=== PATIENT | male | born 1995 | race Caucasian/White ===

== ENCOUNTER 2017-01-16 09:47 | Emergency (ER) | payer OTHER ==
[~2017-01-16] VITALS: Ht 180.3 cm; Wt 102.1 kg
--- NOTE | ~2017-01-16 | CT2 ---
[facility] A Service of [facility] RADIOLOGY TEXT RESULTS PATIENT: LIA MEJIA LOCATION: SED : 97 UNIT #: [id number] AGE: [address]: Miguel Ramirez MD SEX: M ORDER DR: [id number] E MR#: [id number] Acc #: [id number] NAME: LIA MEJIA : 1995 SEX: M STUDY DATE/TIME: 01/16/2017 13:16 UNIT: SED ROOM: STUDY DESCRIPTION: CT Abd and Pelv W Cont Attending Physician: Miguel Ramirez M.D. Ordering Physician: Miguel Ramirez M.D. Primary Care Phys[facility]: [facility] MED[facility] IMAGING REPORT This report is preliminary unless electronic signature is present. EXAM Abdomen and pelvis CT with contrast, 01/16/2017. INDICATION 21-year-old male with abdominal pain, nausea, and vomiting for a month. Symptoms getting worse today, upper epigastric pain. No prior surgeries. TECHNIQUE Contrast-enhanced abdomen and pelvis CT was performed. This CT exam was performed with one or more of the following radiation dose reduction techniques: automatic exposure control, adjustment of mA and/or kV according to patient size, and iterative reconstruction. COMPARISON 05/30/2014. FINDINGS CT ABDOMEN: Included lung bases are clear. Aorta demonstrates no aneurysm or dissection. Spleen, adrenal glands, and pancreas unremarkable. Gallbladder unremarkable. There is mild fatty infiltration of the liver. Kidneys are normal. CT PELVIS: Bladder unremarkable. There is probable pseudothickening of the transverse colon and right colon from incomplete distension. The appendix is normal. Inguinal canals unremarkable. There are bilateral pars defects at L5-S1. No suspicious bone lesion. IMPRESSION Negative noncontrast CT of the abdomen and pelvis. The appendix is normal. Incidental pars defects at L5-S1. [facility] A Service of [facility] RADIOLOGY TEXT RESULTS PATIENT: LIA MEJIA LOCATION: SED : 97 UNIT #: [id number] AGE: [address]: Miguel Ramirez MD SEX: M ORDER DR: Dictated by... Charly Monique M.D. THIS IS AN ELECTRONICALLY VERIFIED REPORT Charly Monique M.D. at 01/16/2017 5:18 PM SEUN/yessi TD: 01/16/2017 17:02 JOB #: [id number] MEDICAL IMAGING REPORT Page 1 of 1
[~2017-01-16 09:47] MED LIST: NO MEDICATIONS; VICODIN 5/500 T1 TAB PO
[2017-01-16 11:26] LABS: BASOPHIL% 0.3 % (0-2.5); EOSINOPHIL% 0.1 % (0.0-7.0); HEMATOCRIT 49.9 % (38.0-50.0); HEMOGLOBIN 16.9 gm/dL (13.0-16.0); LYMPHOCYTE# 0.8 X10e3 (1.0-3.5); LYMPHOCYTE% 5.9 % (17.0-45.0); MEAN CELL VOLUME 82.8 FL (83-96); MEAN CORPUSCULAR HEMOGLOBIN 28.1 PG (28-34); MEAN PLATELET VOLUME 10.3 FL (6.5-11.5); MONOCYTE# 0.8 X10e3 (0-1.0); MONOCYTE% 6.2 % (3.0-12.0); NEUTROPHIL# 11.7 X10e3 (1.5-7.1); NEUTROPHIL% 87.5 % (40-75); PLATELET COUNT 163 X10e3 (140-420); RED BLOOD COUNT 6.02 X10e (3.90-5.60); RED CELL DISTRIBUTION WIDTH 13.9 % (11.0-15.5); WHITE BLOOD COUNT 13.3 X10e3 (4.0-10.5)
[2017-01-16 11:27] LABS: DIFF IND NO
[2017-01-16 11:42] LABS: ALBUMIN SERUM 5.4 g/dL (3.5-5.0); BILIRUBIN,TOTAL 2.4 mg/dL (0.2-2.0); BUN/CREATININE RATIO 14.16; CALCIUM SERUM 9.8 mg/dL (8.4-10.2); CREATININE SERUM 1.2 mg/dL (0.6-1.4); GLOM FILT RATE Estimated 87.2 mL/min (>60); POTASSIUM 4.3 mmol/L (3.5-5.1); PROTEIN TOTAL SERUM 8.4 g/dL (6.0-8.3)
== END 2017-01-16 14:08 | disposition home or self-care (01) ==
LOC: SED 09:47
PROVIDERS: Emergency Medicine
DX: K29.70 Gastritis, unspecified, without bleeding (principal)
CPT/HCPCS: 36415; 74177; 80053; 83690; 85025; 86677; 96361; 96374; 96375; 99284; C9113; J2405; Q9967

== ENCOUNTER → 2017-02-09 | Outpatient (CLI) | payer OTHER ==
[~2017-02-09] MED LIST changes: +ALL DAY ALLERGY10 M3 PO; +BENTYL10 M1 PO; +CARAFATE1 GM PO; +PROTONIX PO; +THORAZINE25 MG PO; +ZOFRAN ODT4 M1 SL
[2017-02-09 17:19] LABS: HEMOGLOBIN 16.3 gm/dL (13.0-16.0); MEAN CORPUSCULAR HEMOGLOBIN 28.2 PG (28-34); MEAN CORPUSCULAR HGB CONC 33.9 g/dL (30-36); MEAN PLATELET VOLUME 10.2 FL (6.5-11.5); RED BLOOD COUNT 5.78 X10e (3.90-5.60); RED CELL DISTRIBUTION WIDTH 13.8 % (11.0-15.5); WHITE BLOOD COUNT 9.5 X10e3 (4.0-10.5)
[2017-02-09 17:27] LABS: ALBUMIN SERUM 5.1 g/dL (3.5-5.0); BILIRUBIN,TOTAL 1.3 mg/dL (0.2-2.0); BUN/CREATININE RATIO 11.81; CALCIUM SERUM 9.4 mg/dL (8.4-10.2); CREATININE SERUM 1.1 mg/dL (0.6-1.4); GLOM FILT RATE Estimated 96.8 mL/min (>60); POTASSIUM 3.6 mmol/L (3.5-5.1); PROTEIN TOTAL SERUM 7.8 g/dL (6.0-8.3)
== END | disposition home or self-care (01) ==
LOC: CLAB 16:43
PROVIDERS: Internal Medicine
DX: R10.9 Unspecified abdominal pain (principal)
CPT/HCPCS: 36415; 80053; 85027

== ENCOUNTER 2017-02-17 16:08 | Inpatient (IN) | payer OTHER ==
[~2017-02-17] VITALS: Ht 175.3 cm; Wt 95.2 kg
--- NOTE | ~2017-02-17 | NM22 ---
[facility] A Service of [facility] RADIOLOGY TEXT RESULTS PATIENT: LIA MEJIA LOCATION: A 218-01 : [birth year] UNIT #: [id number] AGE: [address]: Bandar Stanley MD SEX: M ORDER DR: [id number] [place], [place] [address] [id number] I MR#: [id number] Acc #: [id number] NAME: LIA MEJIA : 1995 SEX: M STUDY DATE/TIME: 02/19/2017 11:32 UNIT: [facility] ROOM: 218 STUDY DESCRIPTION: NM Hepatobiliary W GB Pharm Attending Physician: Bandar Stanley M.D. Ordering Physician: Delgado Ackerman M.D. Primary Care Physician: Primary Care Physician No MEDICAL IMAGING REPORT This report is preliminary unless electronic signature is present EXAM Radionuclide biliary scan 02/19/2017 HISTORY Abdominal pain, 1 month, negative EGD. Normal CT 01/16. FINDINGS Following intravenous administration of 4.16 mCi technetium 99m Choletec, static images of the abdomen were obtained at 15 minute intervals over 60 minutes. The patient then received 1.9 mcg Kinevac by intravenous infusion over 30 minutes. Images obtained before and after Kinevac infusion. Region of interest drawn around gallbladder and time activity curve constructed. Normal examination. Homogeneous distribution of radiotracer throughout the liver at 15 minutes post administration with radiotracer seen in gallbladder and common bile duct at 15 minutes post administration and in small bowel at 30 minutes post administration. During remainder of first hour of study, radiotracer continues to accumulate in small bowel and gallbladder. With Kinevac infusion, the 30 minute ejection fraction is 95.1%. Normal is greater than or equal to 30%. Dictated by... Delgado Boland M.D. THIS IS AN ELECTRONICALLY VERIFIED REPORT Delgado Boland M.D. at 02/21/2017 10:02 PM BRENTK/israel TD: 02/19/2017 18:28 JOB #: [id number] STS[facility] A Service of [facility] RADIOLOGY TEXT RESULTS PATIENT: LIA MEJIA LOCATION: [facility] 218-01 : 97 UNIT #: [id number] AGE: [address]: Bandar Stanley MD SEX: M ORDER DR: MEDICAL IMAGING REPORT Page 1 of 1 COPY
--- NOTE | ~2017-02-17 | CO ---
Unit #: [id number] #: [id number] Patient: LIA MEJIA [id number] [address] [address] [id number] I MR#: [id number] NAME: LIA MEJIA ROOM: 218 Age: 22 Sex: M Admission Date: 02/17/2017 : 1995 Attending Physician: Bandar Stanley M.D. Consultation Date: 02/20/2017 CONSULTATION REPORT REASON FOR CONSULTATION Severe anxiety, cannabis abuse. HISTORY OF PRESENT ILLNESS Lia Mejia is a 22-year-old white male, seen in room 218, bed 1 at [place] on 02/20/2017. The patient dressed casually, seemed to be in pain, rolling in bed, seemed somewhat anxious, nervous. The patient was unable to provide any reliable information. The patient's mom was in the room who gave most of the history. The patient's vital signs; temperature 97.9, pulse 79, respirations 18, blood pressure 148/90, oxygen saturation 93%. The patient was demanding pain medication, reported having lot of pain in his abdomen. So far all the testing came back negative. The patient's mom reported the patient having severe anxiety, and apparently, he was using marijuana. The patient's urine drug screen was positive for opiates and marijuana. The patient currently denied any suicidal or homicidal ideation. Denied any psychotic symptom. PAST PSYCHIATRIC HISTORY Unremarkable for any history of any previous treatment. MEDICAL HISTORY Remarkable for history of nausea and vomiting. No chronic medical condition. MEDICATION HISTORY The patient is on Protonix, Zofran, sucralfate, Bentyl. FAMILY HISTORY AND SOCIAL HISTORY The patient has good support system. No history of abuse. Reported history of cannabis abuse. Urine drug screen is positive for opiates and cannabis. MENTAL STATUS EXAMINATION General appearance; the patient is dressed casually. Attention span and concentration, poor. Speech, slow in volume. Oriented in self and place. Mood and affect, labile. Thought process, coherent. Thought content, the patient denied any thoughts of harming self or others or any psychotic symptom. Recent and remote memory, fair. Language, intact. Fund of knowledge, fair. Insight and judgment, fair to slightly impaired. DIAGNOSES Psychiatric: Cannabis abuse, moderate, F12.20; rule out opioid use disorder, severe, F11.20; anxiety disorder, not otherwise specified, F40.01. Unit #: [id number] #: [id number] Patient: LIA MEJIA Secondary diagnosis: Deferred. Medical diagnosis: Please refer to H and P. Stressors: Psychosocial stressors. ASSESSMENT/PLAN 1. Supportive psychotherapy and psychoeducation were provided to the patient. 2. Educated about benefits and side effects of medication and course and prognosis of illness. 3. Recommending Ativan 0.5 mg q.4 p.r.n. for severe anxiety. Advised Thorazine 25 mg t.i.d. to help with nausea and vomiting as well as with severe anxiety. We will continue to follow. Please feel free to call if any questions telephone #[phone]. Dictated by... Alejandro Suero/yany TD: 02/21/2017 05:02 JOB #: [id number] CONSULTATION REPORT Page 1 of 1 X Akil Brennan MD X CONSULTATION REPORT
--- NOTE | ~2017-02-17 | CR97 ---
[facility] A Service of [facility] RADIOLOGY TEXT RESULTS PATIENT: LIA MEJIA LOCATION: A 218-01 : [birth year] UNIT #: [id number] AGE: [address]: Bandar Stanley MD SEX: M ORDER DR: [id number] [place], [place] [address] [id number] I MR#: [id number] Acc #: [id number] NAME: LIA MEJIA : 1995 SEX: M STUDY DATE/TIME: 02/20/2017 10:53 UNIT: A ROOM: 218 STUDY DESCRIPTION: CR Esophagram Attending Physician: Bandar Stanley M.D. Ordering Physician: Bandar Stanley M.D. Primary Care Physician: Primary Care Physician No MEDICAL IMAGING REPORT This report is preliminary unless electronic signature is present EXAM Gastrografin esophagram HISTORY Pneumomediastinum on CT, concern for esophageal leak. FINDINGS The fluoro time was 1.2 minutes. A total of 10 fluoroscopic images were taken. Patient swallowed Gastrografin. Multiple fluoroscopic images were obtained. Study demonstrates no evidence of contrast extravasation from the esophagus to suggest leak. There were multiple tertiary contractions noted. IMPRESSION No evidence of contrast extravasation from the esophagus to suggest leak. Dictated by... Prabhjot Nelson M.D. THIS IS AN ELECTRONICALLY VERIFIED REPORT Prabhjot Nelson M.D. at 02/25/2017 11:20 AM STEPAN/valerie TD: 02/20/2017 14:58 JOB #: [id number] MEDICAL IMAGING REPORT Page 1 of 1 COPY
--- NOTE | ~2017-02-17 | CT4 ---
[facility] A Service of [facility] RADIOLOGY TEXT RESULTS PATIENT: LIA MEJIA LOCATION: A 218-01 : 97 UNIT #: [id number] AGE: [address]: Bandar Stanley MD SEX: M ORDER DR: [id number] [id number] [facility]. [place], [place] [address] [id number] I MR#: [id number] Acc #: [id number] NAME: LIA MEJIA : 1995 SEX: M STUDY DATE/TIME: 02/20/2017 8:55 UNIT: C2A ROOM: 218 STUDY DESCRIPTION: CT Abd and Pelv Wo Cont Attending Physician: Bandar Stanley M.D. Ordering Physician: Delgado Ackerman M.D. Primary Care Physician: No Primary Care Physician MEDICAL IMAGING REPORT This report is preliminary unless electronic signature is present EXAMINATION CT abdomen and pelvis without contrast. DATE 02/20/2017 HISTORY 22-year-old male with abdominal pain, vomiting, nausea since 02/17/2017. COMPARISON CT abdomen and pelvis with contrast, 01/16/2017. HIDA scan with Kinevac, 02/19/2017. PROCEDURE 5 mm axial images from the lung bases through the lesser trochanters without intravenous or enteric contrast. Sagittal and coronal reformatted images were obtained. This CT exam was performed with one or more of the following radiation dose reduction techniques: automatic exposure control, adjustment of mA and/or kV according to patient size, and iterative reconstruction. FINDINGS Posterior pneumomediastinum is present with air surrounding the lower thoracic esophagus and portion of the inferior pericardium. The lower thoracic esophagus itself does not appear appreciably thickened or inflamed. Lung bases are free of consolidation. No basilar pneumothorax is seen. No free air is demonstrated within the abdomen. The stomach appears unremarkable. Noncontrast appearance of the liver, gallbladder, spleen, pancreas, adrenals and kidneys is within normal limits. Appendix is normal. Bowel appears grossly nonthickened and noninflamed. No free [facility] A Service of [facility] RADIOLOGY TEXT RESULTS PATIENT: LIA MEJIA LOCATION: [facility] 218-01 : [birth year] UNIT #: [id number] AGE: [address]: Bandar Stanley MD SEX: M ORDER DR: contreras. PELVIS FINDINGS: Urinary bladder and rectum are within normal limits. Prostate gland is not enlarged. No urinary tract stone or hydronephrosis is seen. No acute osseous abnormalities are identified. Benign-appearing bone island within the L2 vertebrae. Bilateral L5 pars interarticularis defects are noted, but no anterolisthesis is seen. IMPRESSION 1. Posterior pneumomediastinum surrounding the esophagus. In the context of recent history of vomiting, esophageal perforation cannot be excluded. Gastroenterology consultation and consideration of esophagram recommended. 2. No acute findings within the abdominal or pelvic cavities proper. Normal appendix. No urinary tract stone or hydronephrosis. 3. I personally discussed the findings with Dr. Stanley prior to the time of this dictation today, 02/20/2017 at 09:48. Dictated by... Dunia Serrano M.D. THIS IS AN ELECTRONICALLY VERIFIED REPORT Dunia Serrano M.D. at 02/21/2017 1:10 PM STEVE/dahiana TD: 02/20/2017 12:57 JOB #: [id number] MEDICAL IMAGING REPORT Page 1 of 1 COPY
--- NOTE | ~2017-02-17 | A ---
[facility] Nutrition Therapy DATE: 02/18/17 Patient: LIA MEJIA Physician: VALARIE Address: [address] [facility] Room/Bed: [address] [place] [address], Zip: [place] [address] Admit Date: 02/17/17 Date of : 97 Height: 5 9 Weight: 210 95.25 NUTRITIONAL ASSESSMENT: REASON: 3 pts (unintentional WT loss) Admitting dx: Pt is a 22 y/o male admitted with ABD pain and N/V PMH: No PMH to note. Anthropometrics: HT:69" WT:210# BMI:31 UBW:230# %UBW:91% (9% loss in 1 month) Labs: Na+: 134 Meds: Zofran, Protonix I/O & Bowel function: BM 02/14 Skin Integrity: No skin issues to note. Assessment: Chart reviewed, events noted. Pt was seen for unintentional weight loss. [employer] was able to speak to pt at bedside. Pt reports he has lost 20# over the past month due to N/V and his ABD pain. Pt notes he had a great appetite prior to this. Pt is NPO at the moment for observation and possible testing, but said he wasn't able to eat much anyways. RD encouraged pt to try a supplement when PO intake is medically feasible. Pt agreed to Ensure BID. Pt reported no further questions at this time. RD to follow up per protocol. Dx: Inadquate oral intake r/t N/V, ABD pain AEB 20# weight loss in 1 month. Intervention: See recs below Monitoring, Evaluation and Goals: 1. Tolerance of oral diet advancement per MD. 2. Prevent further bryan loss. 3. Promote regular BM's. Recommendations: 1. Once medically feasible, please order Chocolate Ensure BID to provide supplemental nutrition and calories. 2. Once medically feasible advance as tolerated to regular. [facility] Nutrition Therapy DATE: 02/18/17 Patient: LIA MEJIA Physician: VALARIE Address: [address] [facility] Room/Bed: [address] [place] [address], Zip: [place] [address] Admit Date: 02/17/17 Date of : [birth year] Height: 5 9 Weight: 210 95.25 3. Encourage adequate PO intake. Mild-moderate nutrition risk RD to follow Respectfully, Radha Pritchard, MS, RD, LD [place]yenne Traylor, [employer] [facility] cc: client file
--- NOTE | ~2017-02-17 | CO ---
Unit #: [id number] #: [id number] Patient: LIA MEJIA [id number] [address] [address] [id number] I MR#: [id number] NAME: LIA MEJIA ROOM: 218 Age: 22 Sex: M Admission Date: 02/17/2017 : 1995 Attending Physician: Bandar Stanley M.D. Primary Care Physician: Primary Care Physician No Consultation Date: 02/18/2017 CONSULTATION REPORT BRIEF HISTORY The patient is a 22-year-old gentleman, who presents with recent onset of retching, nausea, vomiting. Normal bowel movements. He has had abdominal pain, described as epigastric, diffuse for approximately one month. He presented to the hospital, was admitted, and evaluated by Dr. Stanley with relatively normal upper and lower endoscopy. He has been minimally responsive to antiemetics. No fevers or chills. PAST MEDICAL HISTORY None. PAST SURGICAL HISTORY He has had no abdominal operations. SOCIAL HISTORY No smoking. No alcohol. FAMILY HISTORY Negative for GI malignancy. REVIEW OF SYSTEMS No cardiopulmonary complaints at this time. Else, 10 systems reviewed negative. PHYSICAL EXAMINATION GENERAL: He is awake and alert, but is retching on evaluation. VITAL SIGNS: Currently, afebrile. HEENT: Unremarkable. NECK: Supple. No JVD. Trachea midline. LUNGS: Clear to auscultation. Bilateral breath sounds symmetric. CARDIOVASCULAR: Regular rate and rhythm. ABDOMEN: Soft. It is diffusely tender, but no rebound, no masses, no point tenderness. EXTREMITIES: No clubbing, cyanosis, or edema. DIAGNOSTIC STUDIES LABORATORY RESULTS: Labs show white count of 16, hemoglobin of 14. Chemistries are normal. IMAGING STUDIES: CT scan on 01/16 was normal. ASSESSMENT AND PLAN Persistent nausea, vomiting, and abdominal pain. Unknown etiology. We will plan for biliary workup consisting of a CCK HIDA scan. Unit #: [id number] #: [id number] Patient: LIA MEJIA Dictated by... Alejandro Hale/yany TD: 02/19/2017 13:02 JOB #: [id number] CONSULTATION REPORT Page 1 of 1 X Delgado Ackerman MD CONSULTATION REPORT
--- NOTE | ~2017-02-17 | OR ---
Unit #: [id number] #: [id number] Patient: LIA MEJIA [id number] [address] [address] [id number] I MR#: [id number] NAME: LIA MEJIA ROOM: 218 Date of Procedure: 02/18/2017 Admission Date: 02/17/2017 Surgeon: Bnadar Stanley M.D. : 1995 Attending Physician: Bandar Stanley M.D. Primary Care Physician: Primary Care Physician No OPERATIVE REPORT PROCEDURE PERFORMED Esophagogastroduodenoscopy with biopsies. INDICATIONS FOR PROCEDURE The patient with persistent severe nausea and vomiting, significant bryan loss, abdominal pain, undergoing evaluation with upper endoscopy. MEDICATIONS Monitored anesthesia. POSTOPERATIVE FINDINGS 1. Small hiatal hernia. 2. Acute appearing gastritis moderately severe. Biopsy was taken. 3. Normal duodenum and distal duodenum. PLAN Continue with PPI therapy and symptomatic treatment. DESCRIPTION OF PROCEDURE The patient was explained of the procedure, risks, and benefits along with risks and benefits of anesthesia. He was brought to the endoscopy room. Propofol anesthesia was given. Bite block was placed. Scope was passed down the mouth into esophagus, stomach, duodenum, and distal duodenum. Findings as described. Biopsies taken. Gently, I pulled it out of the patient's mouth. He tolerated it well. Dictated by... Alejandro Chester/yany TD: 02/19/2017 10:56 JOB #: [id number] Unit #: [id number] #: [id number] Patient: LIA MEJIA OPERATIVE REPORT Page 1 of 1 X Bandar Stanley MD X PROCEDURE OPERATIVE NOTE
--- NOTE | ~2017-02-17 | CO ---
Unit #: [id number] #: [id number] Patient: LIA MEJIA [id number] [address] [address] [id number] I MR#: [id number] NAME: LIA MEJIA ROOM: 218 Age: 22 Sex: M Admission Date: 02/17/2017 : 1995 Attending Physician: Bandar Stanley M.D. Primary Care Physician: Primary Care Physician No Consultation Date: 02/22/2017 CONSULTATION REPORT REASON FOR CONSULTATION Followup. DISCUSSION Lia Mejia is a 22-year-old white male, seen on 02/22/2017 in room 218 bed 1 at [facility]. The patient dressed casually. He is receiving IV fluids. The patient's mom was at the same room. The patient reports that he is feeling better and decrease in anxiety. Reported Thorazine helped him with his anxiety as well as with his nausea, vomiting, and feeling better. The patient denied any suicidal or homicidal ideation. Denied any psychotic symptom. The patient was happy that all the tests came back normal. The patient has a history of cannabis abuse, and agreeable to follow up at [facility] program [facility]. The patient's vital signs; temperature 97.7, pulse 50, respirations 18, blood pressure 139/95, oxygen saturation 99%. REVIEW OF SYSTEMS Complete review of systems unremarkable. MENTAL STATUS EXAMINATION General appearance, the patient dressed casually. Attention span and concentration, fair. Speech, regular rate and coherent. Oriented in time, place, and person. Mood and affect; sad and dysphoric. Thought process, coherent. Thought content, the patient denied any thoughts of harming self or others. Recent and remote memory, fair. Language, intact. Fund of knowledge, fair. Insight and judgment, fair to slightly impaired. DIAGNOSES Psychiatric: Cannabis abuse, moderate, F12.20; anxiety disorder, not otherwise specified, F40.01. ASSESSMENT AND PLAN 1. Supportive psychotherapy and psychoeducation provided to the patient. 2. Educated about benefits and side effects of medication and course and prognosis of illness. 3. Advised to continue with Thorazine 25 mg t.i.d. The patient was given a prescription and advised to follow [facility] telephone #[phone]. Also advised to maintain sobriety. Dictated by... Akil Brennan M.D. Unit #: [id number] #: [id number] Patient: LIA MEJIA BERE/yany TD: 02/22/2017 14:29 JOB #: [id number] CONSULTATION REPORT Page 1 of 1 X Akil Brennan MD X CONSULTATION REPORT
--- NOTE | ~2017-02-17 | CO ---
Unit #: [id number] #: [id number] Patient: LIA MEJIA [id number] [address] [address] [id number] I MR#: [id number] NAME: LIA MEJIA ROOM: 218 Age: 22 Sex: M Admission Date: 02/17/2017 : 1995 Attending Physician: Bandar Stanley M.D. Primary Care Physician: Primary Care Physician No CONSULTATION REPORT REASON FOR CONSULTATION Medical management. HISTORY OF PRESENT ILLNESS The patient is a 23-year-old male who was admitted to the hospital on 02/17/2017 with persistent nausea, vomiting, and abdominal pain. The patient had an upper endoscopy that showed small hiatal hernia and acute appearing gastritis moderately severe, biopsy was taken. Normal duodenum and distal duodenum. The patient also had a scan that was negative and urine drug screen is positive for marijuana and opioids. The patient also had CT of the abdomen and pelvis that shows posterior pneumomediastinum surrounding the esophagus. In the context of, there is a history of vomiting, esophageal perforation cannot be excluded. No acute findings with abdominopelvic cavities proper. Normal appendix and the patient also had an esophagogram that shows no evidence of contrast extravasation from the esophagus to suggest leak. PAST MEDICAL HISTORY None. PAST SURGICAL HISTORY None. HOME MEDICATIONS The patient is on sucralfate, Protonix, Zofran, Ventolin, and Zyrtec. ALLERGIES No known drug allergies. SOCIAL HISTORY Denies history of smoking, denies alcohol, denies any illicit drug abuse. FAMILY HISTORY Reviewed and none. REVIEW OF SYSTEMS Positive for nausea and vomiting. Positive for abdominal pain. All other systems have been reviewed and none. PHYSICAL EXAMINATION GENERAL: The patient is lying on bed, not in acute distress. VITAL SIGNS: Temperature 97.9, pulse 79, respirations 18, saturations 93% at room air, blood pressure 148/90. Unit #: [id number] #: [id number] Patient: LIA MEJIA HEENT: Head, atraumatic, normocephalic. Pupils are equal, round, and reacting to light and accommodation. Extraocular movements are intact. NECK: Supple. LUNGS: Decreased air entry at the base. HEART: Regular rate and rhythm. ABDOMEN: Soft. Positive bowel sounds. EXTREMITIES: No cyanosis. No clubbing. NEUROLOGIC: Alert, awake, and oriented. No gross focal motor deficit. PSYCHIATRIC: Mood and affect appropriate. DIAGNOSTIC STUDIES IMAGING STUDIES: CT of the abdomen and pelvis shows posterior pneumomediastinum surrounding the esophagus. No acute findings within the abdomen or pelvis cavity proper and esophagogram shows no evidence of contrast extravasation from the esophagus to suggest leak. LABORATORY RESULTS: WBC is 10, hemoglobin 15.4, hematocrit 44.5, platelets 126. Sodium 139, potassium 3.7, chloride 106, bicarb 22, glucose 82, BUN 10, creatinine 0.9, AST 16, ALT 12, alkaline phosphatase 56. Urine culture is negative. ASSESSMENT 1. Nausea and vomiting. 2. Acute gastritis. PLAN Continue with supportive care. The patient has been evaluated by Psych and the patient states that Ativan is helping him to stop the nausea and vomiting and continue with supportive care and the patient has no medical problems per the medical management. Continue with GI issues as per the other pci security consultant and continue with supportive care and call us back if needed anything, specific questions, or any help with the management. Dictated by... Alejandro Copeland/yany TD: 02/23/2017 10:11 JOB #: [id number] CONSULTATION REPORT Page 1 of 1 X MOOKIE MEEKS MD X CONSULTATION REPORT
--- NOTE | ~2017-02-17 | HP ---
Unit #: [id number] #: [id number] Patient: LIA MEJIA [id number] [address] [address] [id number] MR#: [id number] NAME: LIA MEJIA ROOM: 218 Age: 22 Sex: M Admission Date: 02/17/2017 : 1995 Attending Physician: Bandar Stanley M.D. Primary Care Physician: No Primary Care Physician HISTORY AND PHYSICAL REASON FOR ADMISSION Persistent nausea, vomiting and abdominal pain. HISTORY OF PRESENT ILLNESS Mr. Mejia is a 23-year-old gentleman, who has been having problems for 2 months, which mostly is persistent severe nausea, unable to eat or drink anything, with recurrent vomiting. Mother says he has lost 20 pounds because he is unable to eat anything. His bowels seem to be moving. He did not have any abdominal pain until a few days ago. Now for three days he complains of significant abdominal pain, moreso in the upper abdomen. No history of any urinary problems. No history of liver, gallbladder or pancreas problems. No history of previous surgeries. No history of previous similar symptoms. The patient denies any use of drugs or alcohol. PAST MEDICAL HISTORY None. SOCIAL HISTORY Denies smoking, drug abuse or alcohol. FAMILY HISTORY Noncontributory. ALLERGIES No known drug allergies. HOME MEDICATIONS 1. Protonix. 2. Zofran. 3. Bentyl. 4. Sucralfate. REVIEW OF SYSTEMS Complete 10-point review of systems was done, which was unremarkable other than as mentioned above. PHYSICAL EXAMINATION VITALS: Vital signs are stable. Temperature 97.6, pulse 73, respiratory rate 16, blood pressure 144/84. HEENT: Pupils equal and reactive. Sclerae anicteric. Oral mucosa moist. NECK: No jugular venous distension. No lymphadenopathy. CHEST: Clear to auscultation bilaterally. HEART: Regular rate and rhythm. No murmurs. Unit #: [id number] #: [id number] Patient: LIA MEJIA ABDOMEN: Mildly tender in the upper area. No guarding. No rebound. No organomegaly or ascites. EXTREMITIES: Without any clubbing, cyanosis or edema. NEUROLOGIC: Intact grossly. No focal, sensory or motor deficits. SKIN: Warm and dry. DIAGNOSTIC STUDIES IMAGING: CT of the abdomen from four weeks ago was grossly unremarkable. LABORATORY: Chemistry shows sodium of 134, normal BUN, creatinine and potassium. Normal LFTs, amylase and lipase. CBC shows hemoglobin 14.9, white count 16,000, platelet count 127,000. ASSESSMENT/PLAN Patient with significant abdominal cramping pain, persistent severe nausea and vomiting for two months, along with weight loss. At this point I will start him on Protonix intravenously, as well as IV fluids and symptomatic control of pain. Upper endoscopy will be done urgently for further evaluation. Further recommendations to follow. Will also check urine for culture and sensitivity as well as drug screen at this time. Dictated by Alejandro Chester/rashid TD: 02/18/2017 09:48 JOB #: [id number] CC: Bandar Stanley M.D. HISTORY AND PHYSICAL Page 1 of 1 X Bandar Stanley MD X HISTORY AND PHYSICAL
--- NOTE | ~2017-02-17 | DS ---
Unit #: [id number] #: [id number] Patient: LIA MEJIA [id number] [address] [place], [place] [address] [id number] I MR#: [id number] NAME: LIA MEJIA ROOM: 218 Age: 22 Sex: M Admission Date: 02/17/2017 : 1995 Discharge Date: 02/22/2017 Attending Physician: Bandar Stanley M.D. Primary Care Physician: No Primary Care Physician DISCHARGE SUMMARY DISCHARGE DIAGNOSES 1. Persistent severe nausea and vomiting. 2. Substance abuse. 3. Gastritis. CONSULTATIONS 1. [facility]. 2. Dr. Akil Brennan, Psychiatric. PROCEDURES 1. EGD. 2. CT scan abdomen and pelvis. 3. HIDA scan. 4. Barium esophagram. HOSPITAL SUMMARY Mr. Mejia was admitted with recurrent severe nausea and vomiting. Initial EGD shows gastritis. Biopsies of that came later on to be negative for H. pylori. Cause of the vomiting was thought to be possible substance abuse. He has been doing frequent marijuana, smoking. Surgery consultation was obtained for persistent symptoms. A CT scan of abdomen and pelvis was negative. A HIDA scan was negative. There was a questionable small air bubble in the mediastinum. Barium esophagram failed to show any kind of esophageal leakage. After all the workup was negative, Psychiatric consult was obtained. He was treated with Ativan and thorazine and responded fairly well. At the time of discharge, he was able to swallow and eat on his own. DISCHARGE CONDITION Stable. ACTIVITY Ad keo. MEDICATIONS 1. Thorazine 25 mg three times daily. 2. Continue Carafate. FOLLOWUP With Dr. Brennan in one to two weeks. Follow up with myself in one to two weeks. Unit #: [id number] #: [id number] Patient: LIA MEJIA Dictated by... Alejandro Chester/roly TD: 03/09/2017 10:02 JOB #: [id number] DISCHARGE SUMMARY Page 1 of 1 X Bandar Stanley MD X DISCHARGE SUMMARY
[~2017-02-17 16:08] MED LIST changes: -ALL DAY ALLERGY10 M3 PO; -BENTYL10 M1 PO; -CARAFATE1 GM PO; -PROTONIX PO; -THORAZINE25 MG PO; -ZOFRAN ODT4 M1 SL
[2017-02-17 17:14] LABS: BASOPHIL% 0.2 % (0-2.5); HEMATOCRIT 46.3 % (38.0-50.0); HEMOGLOBIN 15.8 gm/dL (13.0-16.0); LYMPHOCYTE# 0.5 X10e3 (1.0-3.5); LYMPHOCYTE% 3.1 % (17.0-45.0); MEAN CELL VOLUME 81.5 FL (83-96); MEAN CORPUSCULAR HEMOGLOBIN 27.8 PG (28-34); MEAN CORPUSCULAR HGB CONC 34.2 g/dL (30-36); MEAN PLATELET VOLUME 10.5 FL (6.5-11.5); MONOCYTE# 0.6 X10e3 (0-1.0); MONOCYTE% 4.1 % (3.0-12.0); NEUTROPHIL# 13.9 X10e3 (1.5-7.1); NEUTROPHIL% 92.6 % (40-75); PLATELET COUNT 132 X10e3 (140-420); RED BLOOD COUNT 5.68 X10e (3.90-5.60); RED CELL DISTRIBUTION WIDTH 13.4 % (11.0-15.5)
[2017-02-17 17:20] LABS: DIFF IND NO
[2017-02-17 17:55] LABS: ALBUMIN SERUM 4.9 g/dL (3.5-5.0); BILIRUBIN, DIRECT 0.3 mg/dL (0.0-0.2); BILIRUBIN,INDIRECT 1.3 mg/dL (0.0-0.9); BILIRUBIN,TOTAL 1.6 mg/dL (0.2-2.0); CALCIUM SERUM 9.5 mg/dL (8.4-10.2); CREATININE SERUM 1.2 mg/dL (0.6-1.4); GLOM FILT RATE Estimated 86.6 mL/min (>60); POTASSIUM 3.7 mmol/L (3.5-5.1); PROTEIN TOTAL SERUM 8.1 g/dL (6.0-8.3)
[2017-02-17 20:17] LABS: URINE SOURCE CLEAN CATCH
[2017-02-17 20:29] LABS: URINE APPEARANCE CLEAR; URINE BILIRUBIN NEG (NEG); URINE BLOOD NEG (NEG); URINE COLOR DK YELLOW; URINE GLUCOSE 100 MG/DL (NEG); URINE KETONE 3+ (NEG); URINE LEUKOCYTE ESTERASE TRACE (NEG); URINE NITRATE NEG (NEG); URINE PROTEIN 2+ (NEG); URINE SPECIFIC GRAVITY 1.037 (1.003-1.035)
[2017-02-17 20:32] LABS: URINE BACTERIA AUWI NEG (NEGATIVE); URINE SQUAMOUS EPITHELIAL CELL NONE SEEN /[HPF]
[2017-02-17 20:37] LABS: CULTURE INDICATED? NO
[2017-02-17] MEDS ORDERED: PROTONIX PO (22:10)
[2017-02-17] MEDS ORDERED: ZOFRAN ODT4 M1 SL (22:13)
[2017-02-17] MEDS ORDERED: ALL DAY ALLERGY10 M3 PO (22:13)
[2017-02-17] MEDS ORDERED: BENTYL10 M1 PO (22:13)
[2017-02-17] MEDS ORDERED: CARAFATE1 GM PO (22:15)
[2017-02-18 06:13] LABS: HEMATOCRIT 44.9 % (38.0-50.0); HEMOGLOBIN 14.9 gm/dL (13.0-16.0); MEAN CELL VOLUME 82.2 FL (83-96); MEAN CORPUSCULAR HEMOGLOBIN 27.3 PG (28-34); MEAN CORPUSCULAR HGB CONC 33.2 g/dL (30-36); MEAN PLATELET VOLUME 11.5 FL (6.5-11.5); RED BLOOD COUNT 5.46 X10e (3.90-5.60); RED CELL DISTRIBUTION WIDTH 13.2 % (11.0-15.5); WHITE BLOOD COUNT 16.1 X10e3 (4.0-10.5)
[2017-02-18 06:42] LABS: ALBUMIN SERUM 4.6 g/dL (3.5-5.0); BILIRUBIN,TOTAL 0.9 mg/dL (0.2-2.0); BUN/CREATININE RATIO 14.16; CALCIUM SERUM 8.8 mg/dL (8.4-10.2); CREATININE SERUM 1.2 mg/dL (0.6-1.4); GLOM FILT RATE Estimated 86.6 mL/min (>60); POTASSIUM 3.8 mmol/L (3.5-5.1); PROTEIN TOTAL SERUM 7.6 g/dL (6.0-8.3)
[2017-02-18 10:26] LABS: URINE APPEARANCE TURBID; URINE BILIRUBIN NEG (NEG); URINE BLOOD NEG (NEG); URINE COLOR DK YELLOW; URINE GLUCOSE NEG (NEG); URINE KETONE 3+ (NEG); URINE LEUKOCYTE ESTERASE TRACE (NEG); URINE NITRATE NEG (NEG); URINE PROTEIN 1+ (NEG); URINE SPECIFIC GRAVITY 1.037 (1.003-1.035)
[2017-02-18 10:28] LABS: URBCS1 AUWI 0-2 /[HPF] (0-2); URINE BACTERIA AUWI NEG (NEGATIVE); URINE SQUAMOUS EPITHELIAL CELL NONE SEEN /[HPF]; UWBCS1 AUWI 0-2 (0-5)
[2017-02-18 10:31] LABS: CULTURE INDICATED? NO
[2017-02-18 10:55] LABS: AMPHETAMINE NEG (NEG); BARBITURATES NEG (NEG); BENZODIAZEPINES NEG (NEG); COCAINE NEG (NEG); MARIJUANA POS (NEG); OPIATES POS (NEG); TRICYCLIC ANTIDEPRESSANTS NEG (NEG); U METHADONE NEG (NEG)
[2017-02-19 05:53] LABS: HEMATOCRIT 43.9 % (38.0-50.0); HEMOGLOBIN 14.8 gm/dL (13.0-16.0); MEAN CORPUSCULAR HEMOGLOBIN 27.3 PG (28-34); MEAN CORPUSCULAR HGB CONC 33.7 g/dL (30-36); MEAN PLATELET VOLUME 10.2 FL (6.5-11.5); RED BLOOD COUNT 5.42 X10e (3.90-5.60); RED CELL DISTRIBUTION WIDTH 13.6 % (11.0-15.5); WHITE BLOOD COUNT 11.1 X10e3 (4.0-10.5)
[2017-02-19 06:02] LABS: ALBUMIN SERUM 4.3 g/dL (3.5-5.0); BILIRUBIN,TOTAL 1.5 mg/dL (0.2-2.0); GLOM FILT RATE Estimated 107.9 mL/min (>60); POTASSIUM 3.5 mmol/L (3.5-5.1); PROTEIN TOTAL SERUM 7.3 g/dL (6.0-8.3)
[2017-02-20 07:41] LABS: BASOPHIL% 0.4 % (0-2.5); EOSINOPHIL# 0.3 X10e3 (0-0.7); HEMATOCRIT 44.5 % (38.0-50.0); HEMOGLOBIN 15.4 gm/dL (13.0-16.0); LYMPHOCYTE# 1.6 X10e3 (1.0-3.5); LYMPHOCYTE% 16.4 % (17.0-45.0); MEAN CELL VOLUME 80.8 FL (83-96); MEAN CORPUSCULAR HEMOGLOBIN 27.8 PG (28-34); MEAN CORPUSCULAR HGB CONC 34.5 g/dL (30-36); MEAN PLATELET VOLUME 10.7 FL (6.5-11.5); MONOCYTE# 0.7 X10e3 (0-1.0); NEUTROPHIL# 7.3 X10e3 (1.5-7.1); NEUTROPHIL% 73.2 % (40-75); RED BLOOD COUNT 5.52 X10e (3.90-5.60); RED CELL DISTRIBUTION WIDTH 13.1 % (11.0-15.5)
[2017-02-20 08:03] LABS: ALBUMIN SERUM 4.2 g/dL (3.5-5.0); BILIRUBIN,TOTAL 1.5 mg/dL (0.2-2.0); BUN/CREATININE RATIO 11.11; CREATININE SERUM 0.9 mg/dL (0.6-1.4); GLOM FILT RATE Estimated 122.5 mL/min (>60); POTASSIUM 3.7 mmol/L (3.5-5.1)
[2017-02-20 08:18] LABS: PLATELET COUNT 126 X10e3 (140-420)
[2017-02-20 08:42] LABS: DIFF IND NO
[2017-02-21 06:27] LABS: HEMATOCRIT 44.8 % (38.0-50.0); HEMOGLOBIN 15.1 gm/dL (13.0-16.0); MEAN CELL VOLUME 81.4 FL (83-96); MEAN CORPUSCULAR HEMOGLOBIN 27.6 PG (28-34); MEAN CORPUSCULAR HGB CONC 33.8 g/dL (30-36); MEAN PLATELET VOLUME 10.6 FL (6.5-11.5); RED BLOOD COUNT 5.5 X10e (3.90-5.60); RED CELL DISTRIBUTION WIDTH 13.3 % (11.0-15.5)
[2017-02-21 07:02] LABS: ALBUMIN SERUM 3.9 g/dL (3.5-5.0); BILIRUBIN,TOTAL 1.3 mg/dL (0.2-2.0); CALCIUM SERUM 8.8 mg/dL (8.4-10.2); GLOM FILT RATE Estimated 107.9 mL/min (>60); POTASSIUM 3.4 mmol/L (3.5-5.1); PROTEIN TOTAL SERUM 6.6 g/dL (6.0-8.3)
[2017-02-22 05:21] LABS: HEMATOCRIT 44.6 % (38.0-50.0); HEMOGLOBIN 15.3 gm/dL (13.0-16.0); MEAN CELL VOLUME 80.6 FL (83-96); MEAN CORPUSCULAR HEMOGLOBIN 27.6 PG (28-34); MEAN CORPUSCULAR HGB CONC 34.3 g/dL (30-36); MEAN PLATELET VOLUME 10.1 FL (6.5-11.5); RED BLOOD COUNT 5.53 X10e (3.90-5.60); RED CELL DISTRIBUTION WIDTH 13.3 % (11.0-15.5); WHITE BLOOD COUNT 8.6 X10e3 (4.0-10.5)
[2017-02-22 06:30] LABS: ALBUMIN SERUM 4.2 g/dL (3.5-5.0); BILIRUBIN,TOTAL 1.3 mg/dL (0.2-2.0); BUN/CREATININE RATIO 8.18; CALCIUM SERUM 9.2 mg/dL (8.4-10.2); CREATININE SERUM 1.1 mg/dL (0.6-1.4); GLOM FILT RATE Estimated 96.1 mL/min (>60); POTASSIUM 3.9 mmol/L (3.5-5.1); PROTEIN TOTAL SERUM 6.7 g/dL (6.0-8.3)
[2017-02-22] MEDS ORDERED: THORAZINE25 MG PO (12:55)
== END 2017-02-22 13:10 | disposition home or self-care (01) | DRG 392 ==
LOC: CED 16:08 → CEDOF 22:20 → C2A 22:20 → CED 23:03 → CEDOF 23:03 → C2A 23:04
PROVIDERS: Emergency Medicine; Internal Medicine
PROC: 0DB68ZX Excision of Stomach, Via Natural or Artificial Opening Endoscopic, Diagnostic (ICD-10-PCS; principal; 2017-02-18 12:49)
DX: K29.00 Acute gastritis without bleeding (principal); D69.6 Thrombocytopenia, unspecified; F11.20 Opioid dependence, uncomplicated; K44.9 Diaphragmatic hernia without obstruction or gangrene; E87.6 Hypokalemia; F12.20 Cannabis dependence, uncomplicated; R63.4 Abnormal weight loss
CPT/HCPCS: 36415; 74176; 74220; 78227; 80048; 80053; 80076; 80307; 81003; 82150; 83690; 83735; 85025; 85027; 86140; 87040; 87045; 87086; 87427; 87493; 87899; 88305; 88312; 96361; 96372; 96374; 96375; 96376; 99285; A9537; C9113; J0500; J2060; J2270; J2405; J2550; J2765; J2805